=== PATIENT | female | born 1980 | race Caucasian/White ===

== ENCOUNTER 2023-11-30 14:55 | Emergency (ER) | payer OTHER, SELFPAY ==
[2023-11-30 15:01] VITALS: BP 149/88; PULSE 110; TEMP 36.7; O2SAT 100; BMI 28.2
[2023-11-30 15:14] VITALS: O2SAT 99
--- NOTE | 2023-11-30 15:16 | ED.GENADUL1 ---
HPI HPI - General Adult General Chief complaint: Alcohol Stated complaint: MEDICAL CLEARANCE Time Seen by Provider: 11/30/23 15:00 History of Present Illness HPI narrative: Patient is a pleasant 43-year-old female who presents for medical clearance. She went to check into [facility] detox facility for her chronic alcohol abuse and states that she had a breathalyzer test of 0.253 patient is a pleasant 43-year-old female who presents for medical clearance. She went to check into [facility] facility for her chronic alcohol abuse and states that she had a breathalyzer test of 0.253 and was referred to the emergency department for medical clearance. She has no medical complaints at this time. She has a history of alcoholic cirrhosis and family member states that she has had scleral icterus and skin changes for the last several days. She sees a liver specialist in [facility] and is on lactulose daily. She is not concerned for . No recent illness or vomiting. Related Data Home Medications ?Medication ?Instructions ?Recorded ?Confirmed cholecalciferol (vitamin D3) 25 25 mcg PO DAILY 11/30/23 11/30/23 mcg (1,000 unit) tablet furosemide 20 mg tablet 20 mg PO DAILY 11/30/23 11/30/23 lactulose 10 gram/15 mL oral 15 ml PO TID 11/30/23 11/30/23 solution nadolol 20 mg tablet 20 mg PO DAILY 11/30/23 11/30/23 pediatric multivit no.158-iron fum 1 tab PO DAILY 11/30/23 11/30/23 18 mg-vit K1 10 mcg chewable tablet (Cerovite Jr) potassium chloride 20 mEq 20 meq PO DAILY 11/30/23 11/30/23 tablet,extended release(part/cryst) (Klor-Con M) rifaximin 550 mg tablet (Xifaxan) 550 mg PO BID 11/30/23 11/30/23 spironolactone 25 mg tablet 25 mg PO DAILY 11/30/23 11/30/23 thiamine HCl (vitamin B1) 100 mg 100 mg PO DAILY 11/30/23 11/30/23 tablet Allergies Allergy/AdvReac Type Severity Reaction Status Date / Time No Known Drug Allergies Allergy Verified 11/30/23 15:08 Opioid HPI Opioid Management Most Recent Opioid Data: No Data to Display Review of Systems ROS Constitutional Denies: fever or chills Ears, nose, mouth, and throat Denies: throat pain or nasal congestion Cardiovascular Denies: chest pain Respiratory Denies: shortness of breath or cough Gastrointestinal Denies: abdominal pain, nausea or vomiting Integumentary/Breast Reports: jaundice; Denies: rash Neurological Denies: headache Hematologic/Lymphatic Denies: easy bruising or easy bleeding Exam Narrative Exam Narrative: Gen.: Awake, alert, in no distress Head: Normocephalic, atraumatic ENT: Moist mucous membranes, Scleral icterus Respiratory: No respiratory distress, lungs clear bilaterally Cardio: Regular rate and rhythm Gastrointestinal: Abdomen is soft, nondistended and nontender to palpation Extremities: Moves extremities equally Psych: Normal mood and affect Neuro: No focal neuro deficit Skin: Warm, dry, intact; Mild jaundice noted Constitutional Vital Signs, click to edit/add: Last Vital Signs Temp 98.1 F 11/30/23 15:01 Pulse 110 H 11/30/23 15:01 Resp 20 11/30/23 15:01 BP 118/76 11/30/23 17:30 Pulse Ox 97 11/30/23 17:30 O2 Del Method Room Air 11/30/23 15:01 Course Vital Signs Vital signs: Vital Signs Temperature 98.1 F 11/30/23 15:01 Pulse Rate 110 H 11/30/23 15:01 Respiratory Rate 20 11/30/23 15:01 Blood Pressure 149/88 H 11/30/23 15:01 Pulse Oximetry 100 11/30/23 15:01 Oxygen Delivery Method Room Air 11/30/23 15:01 Temperature 98.1 F 11/30/23 15:01 Pulse Rate 110 H 11/30/23 15:01 Respiratory Rate 20 11/30/23 15:01 Blood Pressure 118/76 11/30/23 17:30 Pulse Oximetry 97 11/30/23 17:30 Oxygen Delivery Method Room Air 11/30/23 15:01 Medical Decision Making MDM Narrative Medical decision making narrative: Laboratory studies reviewed and noted showing the patient has Thrombocytopenia consistent with alcoholic cirrhosis as well as abnormal liver function testing. She has no focal medical complaints in the ER. Alcohol level is 359. She was given a banana bag and a CT of the abdomen and pelvis was performed showing portal hypertension associated with alcoholic cirrhosis, no ascites and gallstones with no evidence of acute cholecystitis or common bile duct dilation. I discussed these results with the nurse practitioner at [facility] who is in agreement the patient can be transferred to their facility for admission for alcohol detox. She is stable at time of discharge. Return to the ER if symptoms change or worsen Medical Records Medical records reviewed: Yes I reviewed the patient's medical records Lab Data Lab results reviewed: Yes I reviewed the patient's lab results Labs: Lab Results 11/30/23 Range/Units 15:29 WBC 3.8 L (4.0-11.0) 10^3/uL RBC 3.60 L (4.20-5.40) 10^6/uL Hgb 13.4 (12.0-16.0) g/dL Hct 36.8 (36.0-48.0) % MCV 102.2 H (81.0-99.0) fL MCH 37.2 H (26.7-34.0) pg MCHC 36.4 H (29.9-35.2) g/dL RDW 14.6 (11.0-15.0) % Plt Count 55 L (150-450) 10^3/uL MPV 10.6 (9.5-13.5) fL Neut % (Auto) 53.4 (43.0-75.0) % Lymph % (Auto) 33.0 (20.5-60.0) % [place] % (Auto) 10.1 (1.7-12.0) % Eos % (Auto) 1.3 (0.9-7.0) % Baso % (Auto) 1.1 (0.2-2.0) % Neut # (Auto) 2.0 (1.4-6.5) 10^3/uL Lymph # (Auto) 1.2 (1.2-3.8) 10^3/uL [place] # (Auto) 0.4 (0.3-0.8) 10^3/uL Eos # (Auto) 0.1 (0.0-0.7) 10^3/uL Baso # (Auto) 0.0 (0.0-0.1) 10^3/uL Abs Immat Gran (auto) 0.04 H (0.00-0.03) 10^3/uL Imm/Tot Granulo (auto) 1.1 H (0.0-0.5) % Sodium 146 H (136-145) mmol/L Potassium 2.8 L* (3.5-5.1) mmol/L Chloride 108 H (98-107) mmol/L Carbon Dioxide 26.1 (21.0-32.0) mmol/L Anion Gap 14.7 BUN 3.0 L (7.0-18.0) mg/dL Creatinine 0.53 L (0.55-1.02) mg/dL Est GFR ( Amer) >60 (>=60) Est GFR (Non-Af Amer) >60 (>=60) BUN/Creatinine Ratio 5.7 Glucose 139 H (74-106) mg/dL Lactate 3.2 H* (0.4-2.0) mmol/L Calcium 7.9 L (8.5-10.1) mg/dL Magnesium 1.6 L (1.8-2.4) mg/dL Total Bilirubin 9.1 H (0.2-1.0) mg/dL Direct Bilirubin 4.0 H* (0.0-0.2) mg/dL AST 105 H (15-37) U/L ALT 40 (14-59) U/L Alkaline Phosphatase 172 H (46-116) U/L Total Protein 7.5 (6.4-8.2) g/dL Albumin 3.2 L (3.4-5.0) g/dL Globulin 4.3 g/dL Albumin/Globulin Ratio 0.7 Lipase 89.0 H (16.0-77.0) U/L Serum HCG, Qual Negative (NEGATIVE) Ethanol Quant 359 mg/dL Imaging Data CT scan - abdomen: Attestation: I have reviewed the pertinent imaging results. Radiologist's impression: ITS Impressions Abdomen/Pelvis CT 11/30/23 16:27 IMPRESSION: 1. Cirrhotic liver with portal hypertension similar to prior study. No discrete hepatic mass. No ascites. 2. Cholelithiasis without evidence of acute cholecystitis. Unremarkable CBD.. Electronically authenticated by: RODRIGO LOWERY Date: 11/30/2023 17:49 ECG Data Attestation: I personally reviewed and interpreted this ECG as follows: (Sinus tachycardia at a rate of 101, no acute ST elevation, no ectopy. EKG reviewed by attending physician) Discharge Plan Discharge Stand Alone Forms: Portal Instructions Chief Complaint: Alcohol Clinical Impression: Alcoholic intoxication, Chronic alcoholic liver disease Patient Disposition: Home, Self-Care Time of Disposition Decision: 18:15 Condition: Good Mode of Transportation: Private Vehicle Prescriptions / Home Meds: No Action cholecalciferol (vitamin D3) 25 mcg (1,000 unit) tablet 25 mcg PO DAILY furosemide 20 mg tablet 20 mg PO DAILY lactulose 10 gram/15 mL solution 15 ml PO TID nadolol 20 mg tablet 20 mg PO DAILY Cerovite Jr 18 mg iron- 10 mcg tablet,chewable 1 tab PO DAILY potassium chloride [Klor-Con M20] 20 mEq tablet,ER particles/crystals 20 meq PO DAILY Xifaxan 550 mg tablet 550 mg PO BID spironolactone 25 mg tablet 25 mg PO DAILY thiamine HCl (vitamin B1) 100 mg tablet 100 mg PO DAILY Print Language: Slovenian Instructions: Cirrhosis of the Liver (ED), Alcohol Intoxication (ED) Additional Instructions: Go directly to [facility] for admission Referrals: Physician,Non-Staff, MD [Primary Care Provider] - 1 week Discharge Date/Time: 11/30/23 18:24
[2023-11-30] MEDS: MULTIVIT INFUSN,ADULT 4,VIT K 10 ML in 0.9 % SODIUM CHLORIDE 1,000 ML 1000 ML IV (15:39)
[2023-11-30 15:44] LABS: Basophils Percent Auto 1.1 % (0.2-2.0); Eosinophils Absolute Auto 0.1 10^3/uL (0.0-0.7); Eosinophils Percent Auto 1.3 % (0.9-7.0); Hematocrit 36.8 % (36.0-48.0); Hemoglobin 13.4 g/dL (12.0-16.0); Immature Granulocytes Abs Auto 0.04 10^3/uL (0.00-0.03); Immature Granulocytes Pct Auto 1.1 % (0.0-0.5); Lymphocytes Absolute Auto 1.2 10^3/uL (1.2-3.8); Mean Corpuscular HGB Conc 36.4 g/dL (29.9-35.2); Mean Corpuscular Hemoglobin 37.2 pg (26.7-34.0); Mean Corpuscular Volume 102.2 fL (81.0-99.0); Mean Platelet Volume 10.6 fL (9.5-13.5); Monocytes Absolute Auto 0.4 10^3/uL (0.3-0.8); Monocytes Percent Auto 10.1 % (1.7-12.0); Neutrophils Percent Auto 53.4 % (43.0-75.0); Platelet Count 55 10^3/uL (150-450); Red Cell Distribution Width 14.6 % (11.0-15.0); White Blood Count 3.8 10^3/uL (4.0-11.0)
[2023-11-30 16:02] LABS: Anion Gap 14.7; BUN Creatinine Ratio 5.7; Calcium 7.9 mg/dL (8.5-10.1); Carbon Dioxide 26.1 mmol/L (21.0-32.0); Chloride 108 mmol/L (98-107); Estimated GFR (African America >60 (>=60); Estimated GFR (Non-African Ame >60 (>=60); Ethanol 359 mg/dL; Glucose 139 mg/dL (74-106); Magnesium 1.6 mg/dL (1.8-2.4); Sodium 146 mmol/L (136-145)
[2023-11-30 16:07] LABS: Alanine Aminotransferase 40 U/L (14-59); Albumin Globulin Ratio 0.7; Albumin Level 3.2 g/dL (3.4-5.0); Alkaline Phosphatase 172 U/L (46-116); Aspartate Amino Transferase 105 U/L (15-37); Bilirubin Total 9.1 mg/dL (0.2-1.0); Globulin 4.3 g/dL; Total Protein 7.5 g/dL (6.4-8.2)
[2023-11-30 16:09] LABS: Lactate/Lactic Acid 3.2 mmol/L (0.4-2.0)
[2023-11-30 16:10] LABS: Potassium 2.8 mmol/L (3.5-5.1)
[2023-11-30 16:13] LABS: HCG Qualitative NEGATIVE (NEGATIVE)
--- NOTE | 2023-11-30 16:27 | CT_ITS ---
[address] [address] Patient Name: JESUS DAWSON MRN: [id number] date: 1980 Sex: F Assigned Patient Location: ER Current Patient Location: ER Accession/Order Number: [id number] Exam Date: 11/30/2023 17:03 Report Date: 11/30/2023 17:49 At the request of: RUSTY ARANDA Procedure: CT abdomen pelvis w con CT ABDOMEN/PELVIS WITH IV CONTRAST. INDICATION: elevated bili, jaundice. COMPARISON: 01/02/2019 TECHNIQUE: Contiguous axial images were obtained from the lung bases to the pelvic floor following the intravenous administration of contrast. Coronal and sagittal reformations are provided. FINDINGS: LOWER LUNGS: Clear. LIVER/BILIARY TREE: No mass. No intrahepatic ductal dilatation. Cirrhotic liver. Patent portal vein. GALLBLADDER: Cholelithiasis.. CBD: Normal CBD. SPLEEN: Splenomegaly. Splenic varices. PANCREAS: No acute findings. No peripancreatic fluid or inflammation. No pancreatic duct dilatation. No discrete mass. ADRENALS: Normal. KIDNEYS: No hydronephrosis. No radiopaque calculus. STOMACH AND BOWEL: Stomach is unremarkable. No dilated bowel loops. No bowel wall thickening. APPENDIX: Normal appendix. PERITONEAL CAVITY: No fluid. No fat stranding. ABDOMINAL WALL: No subcutaneous stranding. No subcutaneous fluid collection. LYMPH NODES: No mesenteric or retroperitoneal lymphadenopathy by CT criteria. ABDOMINAL AORTA: No aneurysm. PELVIS: No acute abnormality. Stable left ovarian 1.1 cm calcification. MUSCULOSKELETAL: No acute osseous abnormality. CT/CT abdomen pelvis w con IMPRESSION: 1. Cirrhotic liver with portal hypertension similar to prior study. No discrete hepatic mass. No ascites. 2. Cholelithiasis without evidence of acute cholecystitis. Unremarkable CBD.. Electronically authenticated by: RODRIGO LOWERY Date: 11/30/2023 17:49
[2023-11-30] MEDS: POTASSIUM BICARBONATE/CIT 25 MEQ TABLET EFF 50 MEQ PO (16:41)
[2023-11-30 17:30] VITALS: BP 118/76; O2SAT 97
--- NOTE | 2023-11-30 18:18 | ECG_ITS ---
[facility] Test Date: 2023-11-30 Pat Name: JESUS DAWSON Department: Room: - Gender: Female [employer]: : 1980 Requested By: Order Number: [id number] Reading MD: SHELLEY LATIF Measurements Intervals [place] Rate: 101 P: 32 WI: 174 QRS: -20 QRSD: 98 T: 49 QT: 378 QTc: 436 Interpretive Statements 1120 Sinus tachycardia Low voltage across the precordium 5234 Left ventricular hypertrophy with repolarization abnormality 9150 abnormal ECG No previous ECG available for comparison Electronically Signed On 12-01-2023 7:19:30 EDT by SHELLEY LATIF
== END 2023-11-30 18:24 | disposition home or self-care (01) ==
PROVIDERS: Physician Assistant; Emergency Provider Emergency Medicine
DX: F10.129 Alcohol abuse with intoxication, unspecified (principal); Y90.8 Blood alcohol level of 240 mg/100 ml or more; K70.30 Alcoholic cirrhosis of liver without ascites; Z79.899 Other long term (current) drug therapy
CPT/HCPCS: 36415; 74177; 80048; 80076; 80320; 83605; 83690; 83735; 84703; 85025; 93005; 96365; 99285; Q9967

== ENCOUNTER 2023-12-02 15:43 | Outpatient (OUT) | payer OTHER, SELFPAY ==
[2023-12-02 16:33] LABS: Alanine Aminotransferase 37 U/L (14-59); Albumin Globulin Ratio 0.7; Albumin Level 3.1 g/dL (3.4-5.0); Alkaline Phosphatase 170 U/L (46-116); Amylase 48 U/L (25-115); Aspartate Amino Transferase 83 U/L (15-37); Bilirubin Total 10.9 mg/dL (0.2-1.0); Globulin 4.4 g/dL; Thyroid Stimulating Hormone 10.768 uIU/mL (0.358-3.740); Total Protein 7.5 g/dL (6.4-8.2)
[2023-12-02 16:47] LABS: Ammonia 101 umol/L (11-32); Bilirubin Direct 4.6 mg/dL (0.0-0.2)
== END 2023-12-02 15:44 | disposition home or self-care (01) ==
DX: R17 Unspecified jaundice (principal)
CPT/HCPCS: 36415; 80076; 82140; 82150; 83690; 84443